=== PATIENT | male | born 1970 | race Caucasian/White ===

== ENCOUNTER 2021-12-06 17:11 | Emergency (ER) | payer SELFPAY | END 2021-12-06 17:25 | disposition left against medical advice (07) | PROVIDERS: Emergency Provider Emergency Medicine | DX: S61.04 Puncture wound with foreign body of thumb without damage to nail (principal); W45.8XXA Other foreign body or object entering through skin, initial encounter; Y93.14 Activity, water aerobics and water exercise; Y92.89 Other specified places as the place of occurrence of the external cause; Y99.9 Unspecified external cause status ==

== ENCOUNTER 2022-07-22 17:11 | Emergency (ER) | payer OTHER, SELFPAY ==
[2022-07-22 17:15] VITALS: BP 154/97; PULSE 90; O2SAT 96
--- NOTE | 2022-07-22 17:31 | ED_ITS ---
HPI - Nausea/Vomiting/Diarrhea General Chief complaint: Abdominal Pain Stated complaint: NVD Time Seen by Provider: 07/22/22 19:44 Source: patient Mode of arrival: ambulatory Limitations: no limitations History of Present Illness HPI Narrative: 52 yo male presents to the ER for evaluation of nausea, vomiting and diarrhea for the last 4 days. Patient took his friend's weight loss prescription Wegovy 1.7 mg SQ on Wednesday. He started to feel sick within a few hours of administering the shot. Patient states he has had countless amounts of vomiting and able to tolerate minimal p.o.. He feels weak and unwell. He has some soreness in his abdomen from retching and having recurrent vomiting. He denies any fevers or chills. He denies any urinary symptoms. No headaches. MD elicited complaint: nausea, vomiting and diarrhea Onset (ago): day(s) (4) Description of vomiting: watery and bilious Description of diarrhea: loose Associated nausea: Yes Associated abdominal pain: Yes Location of pain: diffuse Pain consistency: intermittent Severity: mild Quality: aching Exacerbating factors: eating Relieving factors: none Context: new medication Associated symptoms: myalgias, loss of appetite, malaise and weakness Related Data Previous Rx's Medication Instructions Recorded ondansetron 4 mg disintegrating 4 mg PO Q8H PRN nausea and 07/22/22 tablet vomiting #10 tabs Allergies Allergy/AdvReac Type Severity Reaction Status Date / Time No Known Allergies Allergy Verified 07/22/22 17:32 Review of Systems Review of Systems: Yes all other systems are reviewed and are negative Gastrointestinal: Gastrointestinal: Reports nausea PMFSH Social History Social History Advance Directives: No Advance Directives Information Provided: Yes Physical Exam Vital Signs: Vital Signs: Last Vital Signs Temp 98.1 F 07/22/22 20:49 Pulse 80 07/22/22 20:49 Resp 18 07/22/22 20:49 BP 166/86 H 07/22/22 20:49 Pulse Ox 96 07/22/22 20:49 O2 Del Method Room Air 07/22/22 20:49 BMI result Body Mass Index 29.4 Appearance: Alert. Oriented X3. No acute distress. Eyes: Pupils equal, round and reactive to light. ENT: Pharynx normal. Neck: Normal inspection. Neck supple. CVS: Normal heart rate and rhythm. Pulses normal. Respiratory: No respiratory distress. Breath sounds normal. Abdomen: Soft and nontender. +BS x4 Skin: Skin warm and dry. Normal skin color. Normal skin turgor. No rashes. Extremities: No lower extremity edema. Neuro: Oriented X 3. Grossly normal, nonfocal, steady gait Course Course Course Narrative: RME - 52 yo male with history of appendectomy, hx CVA, DM, HTN who presents to the ER for evaluation of N/V/D for the last 4 days after he tried his friend's Wegovy 1.7 mg SC on 07/19. He has not been able to keep anything down since he took. Feels extremely weak. Plan: Labs, IVF, antiemetics, PO trial, & reassess. Reevaluation(s) Reevaluation #1: Labs showing leukocytosis of 16.1. Likely reactive due to vomiting. He is hypokalemic. No hypo magnesemia or MARIO. IV fluids, antiemetics ordered. Will reassess Reevaluation #2: tolerating PO and feeling better. stable for d/[facility] and outpatient follow up. Medications Administered Discontinued Medications Generic Name Dose Route Start Last Admin Trade Name Freq PRN Reason Stop Dose Admin Famotidine 20 mg 07/22/22 20:39 07/22/22 20:42 Famotidine/Pf 20 Mg/2 Ml Vial IVPUSH 07/22/22 20:40 20 mg ONCE ONE Administration Sodium Chloride 1,000 mls @ 999 mls/hr 07/22/22 17:45 07/22/22 19:53 Ns IVCONT 07/22/22 18:45 999 mls/hr .Q1H1M DARCIE Administration Sodium Chloride 1,000 mls @ 999 mls/hr 07/22/22 19:45 07/22/22 20:09 Ns IVCONT 07/22/22 20:45 999 mls/hr .Q1H1M DARCIE Administration Ondansetron HCl 4 mg 07/22/22 17:32 07/22/22 19:55 Ondansetron Hcl 4 Mg/2 Ml Vial IVPUSH 07/22/22 17:33 4 mg ONCE ONE Administration Potassium Chloride 40 meq 07/22/22 19:44 07/22/22 19:56 Potassium Chloride Er 20 Meq Tab.Er.Prt PO 07/22/22 19:45 40 meq ONCE ONE Administration Medical Decision Making Medical Decision Making [facility] Narrative: 52-year-old male presents to the ER for evaluation of 4 days of nausea, vomiting, diarrhea after taking his friend's Wegovy 1.7 mg. Appears to feel unwell but he is nontoxic appearing. Half life of Wegovy is 1 week. Differential Diagnosis Differential Diagnoses: The differential diagnosis associated with the presentation includes Adverse medication reaction, dehydration, gastroenteritis, electrolyte abnormality, small-bowel obstruction, less likely appendicitis, diverticulitis, cholecystitis, pancreatitis Lab Data [facility] Lab Attestation statement: I reviewed the patient's lab results. 07/22/22 17:43 07/22/22 17:43 Labs: Lab Results 07/22/22 07/22/22 Range/Units 17:43 17:43 WBC 16.1 H (4.8-10.8) X10*3/uL RBC 6.26 H (4.60-5.80) X10*6/uL Hgb 17.1 (14.0-18.0) g/dl Hct 49.3 (42.0-52.0) % MCV 78.8 L (80.0-98.0) fL MCH 27.3 (27.0-33.0) pg MCHC 34.7 (31.0-36.0) g/dl RDW 14.8 (11.0-16.0) % Plt Count 392 (160-400) X10*3/uL MPV 9.9 (9.4-12.4) fL Immature Gran % (Auto) 0.5 H (0.0-0.4) % Neut % (Auto) 67.1 (45-73) % Lymph % (Auto) 19.1 L (20-40) % [place] % (Auto) 10.2 (2-11) % Eos % (Auto) 2.4 (0-4) % Baso % (Auto) 0.7 (0-2) % Lymph # (Auto) 3.1 (1.2-4.9) X10*3/uL [place] # (Auto) 1.6 H (0.1-1.2) X10*3/uL Eos # (Auto) 0.4 (0.0-0.4) X10*3/uL Baso # (Auto) 0.1 (0.0-0.2) X10*3/uL Abs Immat Gran (auto) 0.08 H (0.00-0.03) X10*3/uL Absolute Neuts (auto) 10.8 H (2.0-8.3) x10*3/uL Absolute Nucleated RBC 0.000 (0.0-0.012) X10*3/uL Nucleated RBC % (auto) 0.0 (0.0-0.2) /100WBC Smear Tech's Comments VERIFIED Sodium 140 (135-145) mmol/L Potassium 3.0 L (3.3-5.1) mmol/L Chloride 96 (96-108) mmol/L Carbon Dioxide 23 (22-29) mmol/L Anion Gap 24 H (12-20) BUN 30 H (9-16) mg/dL Creatinine 1.08 (0.5-1.4) mg/dL Estim Creat Clear Calc 90.6 Estimated GFR > 60 Random Glucose 138 H (60-115) mg/dL Calcium 10.1 (8.4-10.2) mg/dL Magnesium 2.1 (1.6-2.6) mg/dL Total Bilirubin 1.0 (0.0-1.0) mg/dL Direct Bilirubin 0.3 (0.0-0.5) mg/dL AST 20 (5-37) U/L ALT 19 (0-40) U/L Alkaline Phosphatase 166 H (39-117) U/L Total Protein 7.5 (6.5-8.0) g/dL Albumin 4.5 (3.5-5.0) g/dL Discharge Plan Discharge Clinical Impression: Adverse drug reaction Patient Disposition: Home, Self-Care Instructions: Adverse Drug Reaction (ED) Additional Instructions: Do not use your friend's drugs! The half life of Wegovy is 1 week. You should start to feel better as time goes on. Take the prescribed nausea medication as needed. Drink plenty of fluids and stay hydrated. Follow up with your doctor. If you develop new or worsening symptoms call 911 or come back to the ER for further evaluation. Prescriptions: New ondansetron 4 mg tablet,disintegrating 4 mg PO Q8H PRN (Reason: nausea and vomiting) Qty: 10 0RF
[2022-07-22 17:33] VITALS: BP 153/100; PULSE 97; RESP 18; TEMP 36.6; O2SAT 98; BMI 29.4
[2022-07-22 17:53] LABS: Basophils Absolute Auto 0.1 X10*3/uL (0.0-0.2); Basophils Percent Auto 0.7 % (0-2); Eosinophils Absolute Auto 0.4 X10*3/uL (0.0-0.4); Eosinophils Percent Auto 2.4 % (0-4); Hematocrit 49.3 % (42.0-52.0); Hemoglobin 17.1 g/dl (14.0-18.0); Imm Gran Abs Auto 0.08 X10*3/uL (0.00-0.03); Imm Gran Pct Auto 0.5 % (0.0-0.4); Lymphocytes Absolute Auto 3.1 X10*3/uL (1.2-4.9); Lymphocytes Percent Auto 19.1 % (20-40); MANUAL DIFF FLAG SCAN; Mean Corpuscular HGB Conc 34.7 g/dl (31.0-36.0); Mean Corpuscular Hemoglobin 27.3 pg (27.0-33.0); Mean Corpuscular Volume 78.8 fL (80.0-98.0); Mean Platelet Volume 9.9 fL (9.4-12.4); Monocytes Absolute Auto 1.6 X10*3/uL (0.1-1.2); Monocytes Percent Auto 10.2 % (2-11); Neutrophils Absolute Auto 10.8 x10*3/uL (2.0-8.3); Neutrophils Percent Auto 67.1 % (45-73); Platelet Count 392 X10*3/uL (160-400); Red Blood Count 6.26 X10*6/uL (4.60-5.80); Red Cell Distribution Width 14.8 % (11.0-16.0); SCAN SMEAR FLAG 1; White Blood Count 16.1 X10*3/uL (4.8-10.8)
[2022-07-22 18:12] LABS: SLIDE REVIEW VERIFIED
[2022-07-22 18:27] LABS: Alanine Aminotransferase 19 U/L (0-40); Albumin Level 4.5 g/dL (3.5-5.0); Alkaline Phosphatase 166 U/L (39-117); Anion Gap 24 (12-20); Aspartate Amino Transferase 20 U/L (5-37); Bilirubin Direct 0.3 mg/dL (0.0-0.5); Blood Urea Nitrogen 30 mg/dL (9-16); Calcium 10.1 mg/dL (8.4-10.2); Carbon Dioxide 23 mmol/L (22-29); Chloride 96 mmol/L (96-108); Creatinine Clr Calc Pharmacy 90.6; Estimated Glomerular Filt Rate > 60; Glucose Random 138 mg/dL (60-115); Magnesium 2.1 mg/dL (1.6-2.6); Sodium 140 mmol/L (135-145); Total Protein 7.5 g/dL (6.5-8.0)
[2022-07-22] MEDS: 0.9 % Sodium Chloride 1,000 ML 999 ML IVCONT ×2 (19:53→20:09)
[2022-07-22] MEDS: ondansetron HCL 4 MG/2 ML VIAL IVPUSH (19:55)
[2022-07-22] MEDS: Potassium Chloride ER 20 MEQ TAB.ER.PRT 40 MEQ PO (19:56)
--- NOTE | 2022-07-22 20:04 | PC.NURSE ---
pt medicated per JUN 20G iv in left AC NS 0.9% running- pt resting with sig other at bedside
[2022-07-22] MEDS: Famotidine/PF 20 MG/2 ML VIAL IVPUSH (20:42)
[2022-07-22 20:49] VITALS: BP 166/86; PULSE 80; RESP 18; TEMP 36.7; O2SAT 96
[2022-07-22] MEDS: Potassium Chloride ER 20 MEQ TAB.ER.PRT PO (21:25)
--- NOTE | 2022-07-22 21:31 | PC.NURSE ---
pt given PO trial with saltines, and gingerale, pt sts that feels much better oob sitting upright. S.O. at bedside- plan for discharge home
== END 2022-07-22 22:03 | disposition home or self-care (01) ==
PROVIDERS: Physician Assistant; Emergency Provider Emergency Medicine
DX: T50.995A Adverse effect of other drugs, medicaments and biological substances, initial encounter (principal); R11.10 Vomiting, unspecified; T50.905A Adverse effect of unspecified drugs, medicaments and biological substances, initial encounter; Y92.9 Unspecified place or not applicable; Z79.899 Other long term (current) drug therapy
CPT/HCPCS: 36415; 80048; 80076; 83735; 85025; 96361; 96374; 96375; 99284; J2405

== ENCOUNTER 2023-02-21 10:58 | Observation (INO) | payer OTHER, SELFPAY ==
--- NOTE | ~2023-02-21 | CT_ITS ---
EXAMINATION: CTA head and neck with contrast CLINICAL INFORMATION: Speech difficulty COMPARISON: None available. TECHNIQUE: Test bolus sequences followed by intravenous administration of 65 mL Omnipaque 350. Helical imaging was performed in the axial plane from the skull base to the thoracic inlet. Delayed postcontrast imaging of the head was also performed. The data was processed at the magnetic resonance technologist workstation for generation of MIP sequences. Angled MIPs and volume rendered reformatted images were also generated at an offline 3D workstation. Stenoses are assessed in accordance with NASCET criteria unless otherwise indicated. This CT examination was performed using dose optimization techniques as appropriate, variously including the following: *Automated exposure control *Adjustment of mA and/or kV according to patient size (this includes techniques or standardized protocols for targeted exams where dose is matched to indication/reason for exam; i.e. extremities or head) *Use of iterative reconstruction technique FINDINGS: CTA NECK: Three-vessel aortic arch. The innominate and bilateral subclavian arteries are patent. The origins and cervical segments of the common carotid arteries are patent bilaterally. The common carotid artery bifurcations demonstrate mural calcifications extending into the proximal segments of the cervical internal carotid arteries bilaterally without significant stenosis. The origins and cervical segments of the vertebral arteries are patent bilaterally. There is No hemodynamically significant stenosis, dissection, or aneurysm. The visualized branches of the external carotid arteries are unremarkable bilaterally. CTA HEAD: Anterior circulation: The petrous, cavernous, and supraclinoid segments of the internal carotid arteries are patent bilaterally. The major branches of the anterior and middle cerebral arteries as well as the anterior communicating artery complex are patent. No large vessel occlusion, saccular aneurysm, or dissection. Posterior circulation: The intracranial vertebral arteries are patent bilaterally. The basilar artery is normal in course and caliber. The posterior cerebral and superior cerebellar arteries arise normally from the basilar summit. Left posterior cerebral artery. No aneurysm. On delayed imaging, the venous structures demonstrate normal contrast opacification. No filling defect. No abnormal intraparenchymal enhancement. Soft tissues: Ill-defined and irregular mass at the posterior aspect of the tongue base may represent enlarged lingual tonsils. There is near complete opacification of the valleculae. Multiple prominent bilateral level II nodes are present, measuring up to 1.1 cm on the left and 0.9 cm on the right. Additional subcentimeter level III and level IV lymph nodes are present bilaterally. 1.1 x 1 cm hypoattenuating lesion involving the left thyroid lobe. Lungs: Multifocal groundglass opacities scattered in the visualized lungs. Bones: No acute osseous abnormality. No lytic or blastic osseous lesions. Mild degenerative changes of the visualized spine. CT/CT angio head neck stroke IMPRESSION: -CTA head demonstrates no large vessel occlusion, aneurysm, or dissection. -CTA neck demonstrates no hemodynamically significant stenosis, dissection, or aneurysm. Incidentally identified ill-defined and irregular mass at the posterior aspect of the tongue base is a near complete opacification of the bilaterally. May represent enlarged lingual tonsils versus oropharyngeal mass/neoplasm. Recommend direct visualization for further assessment. Multiple prominent cervical lymph nodes are present bilaterally may be reactive. Multifocal groundglass opacities scattered in the visualized lungs, nonspecific and can be seen with atelectasis, pulmonary edema, infection/inflammation, or small airway disease. 1.1 cm hypoattenuating lesion involving the left thyroid lobe. No follow-up recommended unless deemed clinically necessary.
--- NOTE | ~2023-02-21 | MR_ITS ---
EXAMINATION: MR BRAIN WITHOUT CONTRAST CLINICAL INFORMATION: Evaluate for stroke. Speech difficulty reported on the CT exam from 02/21/2023. COMPARISON: Head CT from 02/21/2023. TECHNIQUE: Multiplanar, multisequence imaging of the brain was performed without contrast. Very limited examination with motion artifacts. FINDINGS: There is encephalomalacia in the posterior right periventricular white matter extending into the posterior right basal ganglia where there is chronic hemosiderin staining. Mild ex vacuo dilatation of the right lateral ventricle also noted. There is a small chronic lacunar infarct in the dorsal left basal ganglia as well. No diffusion abnormalities are identified to suggest an acute infarct. No hydrocephalus evident. No mass effect or midline shift is seen. No additional brain parenchymal signal abnormality is noted. No extra-axial fluid collections are seen. The brainstem and cerebellum are normal. The craniovertebral junction, marrow signal, and midline structures are normal. The major intracranial flow voids at the level of the kaw of [place] are preserved. The dural venous sinus flow voids are maintained. Mild ethmoid sinus mucosal thickening noted. There is a trace amount of fluid in the dependent left mastoid air cells. MR/MR head/brain wo con IMPRESSION: Significantly limited study with motion artifacts. No acute process. Encephalomalacia and chronic hemosiderin staining in the posterior right periventricular white matter and dorsal right basal ganglia which may be due to either a prior parenchymal hemorrhage or hemorrhagic infarct. Small chronic lacunar infarct in the dorsal left basal ganglia as well.
--- NOTE | ~2023-02-21 | CT_ITS ---
EXAMINATION: CT HEAD WITHOUT CONTRAST (STROKE PROTOCOL) CLINICAL INFORMATION: Stroke protocol. Speech difficulty. COMPARISON: None available. TECHNIQUE: Contiguous axial imaging was performed from the skull base to vertex without intravenous administration of contrast. This CT examination was performed using dose optimization techniques as appropriate, variously including the following: *Automated exposure control *Adjustment of mA and/or kV according to patient size (this includes techniques or standardized protocols for targeted exams where dose is matched to indication/reason for exam; i.e. extremities or head) *Use of iterative reconstruction technique DLP: 767 mGy-cm FINDINGS: No acute intracranial hemorrhage. No mass effect or midline shift. No parenchymal lesion. The metz-white differentiation is maintained. No extra-axial fluid collection. The ventricles and sulci are unremarkable. The basal cisterns are patent. The calvarium is intact. The visualized paranasal sinuses and mastoid air cells are clear. CT/CT head for stroke IMPRESSION: No acute intracranial hemorrhage or mass effect. This critical result was discussed with Dr. Glass at 11:19 AM hours on 02/21/2023. It was ascertained that the content and urgency of the report was understood at the time of direct communication.
--- NOTE | 2023-02-21 11:04 | ECG_ITS ---
Test Reason : STROKE Blood Pressure : / mmHG Vent. Rate : 073 BPM Atrial Rate : 073 BPM P-R Int : 194 ms QRS Dur : 092 ms QT Int : 384 ms P-R-T Axes : 018 -06 019 degrees QTc Int : 423 ms Normal sinus rhythm Minimal voltage criteria for LVH, may be normal variant ( R in aVL ) Nonspecific ST abnormality Abnormal ECG No previous ECGs available Referred By: Hannah Glass Electronically Signed By:JAMARI HOPSON MD
--- NOTE | 2023-02-21 11:06 | ED_ITS ---
HPI - Neuro Symptoms/Deficit General Chief Complaint: Stroke Stated Complaint: ? of stroke Time Seen by Provider: 02/21/23 11:04 Source: patient and family Mode of arrival: wheelchair History of Present Illness HPI Narrative: 52-year-old male who reports a previous stroke and then today after having breakfast with his daughter he went to take a shower and experienced significant dizziness and states that he was swaying and have some difficulty with speech. These symptoms started at 09:15 and have not changed. Patient denies being on any aspirin/Plavix or other anticoagulation or anti-platelet therapy. Related Data Previous Rx's Medication Instructions Recorded ondansetron 4 mg disintegrating 4 mg PO Q8H PRN nausea and 07/22/22 tablet vomiting #10 tabs Allergies Allergy/AdvReac Type Severity Reaction Status Date / Time No Known Allergies Allergy Verified 07/22/22 17:32 Review of Systems 2 Review of Systems: Pertinent positives and negatives as stated in HPI PMFSH Past Medical History Source: nursing notes reviewed Social History Social History Smoked in Last 30 Days: Yes Use of substances other than those prescribed or required for medical reasons: No Advance Directives: No Advance Directives Information Provided: Yes Physical Exam 2 Vital Signs: Vital Signs: Last Vital Signs Temp 98.2 F 02/21/23 11:15 Pulse 76 02/21/23 11:15 Resp 15 02/21/23 11:15 BP 185/93 H 02/21/23 11:15 Pulse Ox 95 02/21/23 11:15 O2 Del Method Room Air 02/21/23 11:15 BMI result Body Mass Index 31.1 VITAL SIGNS: Reviewed. GENERAL: Well developed, well nourished, in no acute distress. HEAD: Normocephalic/atraumatic EYES: PERRLA, EOMI EARS: Ext canals without abnormality NOSE: Nares patent bilateral OROPHARYNX: no oral lesions noted, posterior pharynx clear NECK: Supple, no adenopathy LUNGS: Normal breath sounds. No adventitious sounds or accessory muscle use. SpO2<95> CARDIOVASCULAR: Regular rate and rhythm without noted murmurs ABDOMEN: Soft, non-tender, non-distended with bowel sounds. MUSCULOSKELETAL: No tenderness, deformities, or effusions noted on gross inspection. EXTREMITIES: No cyanosis, clubbing or edema. SKIN: Inspection of the skin reveals no rashes NEUROLOGIC: Alert and oriented x 4. Strength and sensation to light touch were grossly intact x 4, please see NIH stroke scale Medications Administered Generic Name Dose Route Start Last Admin Trade Name Freq PRN Reason Stop Dose Admin Sodium Chloride 1,000 mls @ 999 mls/hr 02/21/23 11:45 02/21/23 12:18 Ns IV 02/21/23 12:45 999 mls/hr .Q1H1M DARCIE Administration Discontinued Medications Generic Name Dose Route Start Last Admin Trade Name Freq PRN Reason Stop Dose Admin Aspirin 162 mg 02/21/23 11:59 02/21/23 12:17 Aspirin 81 Mg Tab.Chew PO 02/21/23 12:00 162 mg ONCE ONE Administration Iohexol 65 ml 02/21/23 11:30 02/21/23 11:31 Iohexol 350 Mg/Ml 100 Ml Infus..Btl IV 02/21/23 11:31 65 ml ONCE ONE Administration Medical Decision Making Medical Decision Making [facility] Narrative: 1104:52-year-old male with history and clinical presentation mildly suspicious for possible posterior circulation stroke although patient having speech difficulty which could suggest left sided etiology. 1118: [facility] informed me that noncontrast head CT scan is negative for any acute findings. Awaiting CT angio of head and neck at this time. 1140: Patient noted to be hyperglycemic. 1145: Page out to Neurology. 1155: Not considering tPA due to minor deficits and possible other etiologies. ASA, admission and MRI tomorrow. I reviewed all investigations and hematologic indices demonstrate a stress leukocytosis with a left shift and no evidence of anemia or thrombocytopenia. Coagulation studies are within normal limits. Chemistry indices are negative for MARIO and there are no electrolyte derangements, high sensitivity troponin is 3.2 and there is hyperglycemia without evidence of DKA or HHS, beta hydroxybutyrate is 0.11. Patient will receive 1 L of IV fluids and elevated blood pressure has resolved and no additional antihypertensives will be administered at this time. Urinalysis is negative for UTI or hematuria. CT angio of head and neck is not significant for any acute findings in the circulation system, however there is some concern for possible tongue base mass which will need further evaluation likely in the outpatient setting. There are no associated swallowing or breathing difficulties. EKG without evidence of STEMI. 1230: I discussed the case with inpatient hospitalist who accepts admission. Differential Diagnosis Differential Diagnoses: The differential diagnosis associated with the presentation includes Please see the discussion above Admission/Observation Consideration of admission/observation: Escalation of care including admission/observation considered Please see the discussion above Consult Healthcare Provider Management of the patient was discussed with: Emergency Department Manager Please see the discussion above Lab Data MDM Lab Attestation statement: I reviewed the patient's lab results. Please see the discussion above 02/21/23 11:06 02/21/23 11:06 Labs: Lab Results 02/21/23 02/21/23 02/21/23 Range/Units 11:06 11:09 11:12 WBC 10.9 H (4.8-10.8) X10*3/uL RBC 5.69 (4.60-5.80) X10*6/uL Hgb 15.8 (14.0-18.0) g/dl Hct 46.9 (42.0-52.0) % MCV 82.4 (80.0-98.0) fL MCH 27.8 (27.0-33.0) pg MCHC 33.7 (31.0-36.0) g/dl RDW 14.2 (11.0-16.0) % Plt Count 269 D (160-400) X10*3/uL MPV 9.7 (9.4-12.4) fL Immature Gran % (Auto) 0.5 H (0.0-0.4) % Neut % (Auto) 65.5 (45-73) % Lymph % (Auto) 24.7 (20-40) % [place] % (Auto) 6.5 (2-11) % Eos % (Auto) 2.3 (0-4) % Baso % (Auto) 0.5 (0-2) % Lymph # (Auto) 2.7 (1.2-4.9) X10*3/uL [place] # (Auto) 0.7 (0.1-1.2) X10*3/uL Eos # (Auto) 0.3 (0.0-0.4) X10*3/uL Baso # (Auto) 0.1 (0.0-0.2) X10*3/uL Abs Immat Gran (auto) 0.05 H (0.00-0.03) X10*3/uL Absolute Neuts (auto) 7.2 (2.0-8.3) x10*3/uL Absolute Nucleated RBC 0.000 (0.0-0.012) X10*3/uL Nucleated RBC % (auto) 0.0 (0.0-0.2) /100WBC PT 11.3 (11.1-13.3) SEC Whole Blood PT 12.0 (11.1-13.5) sec INR 0.9 (0.9-1.1) Whole Blood INR 1.0 (0.9-1.1) APTT 32.0 (26.0-36.4) SEC Sodium 138 (135-145) mmol/L Potassium 3.3 (3.3-5.1) mmol/L Chloride 100 (96-108) mmol/L Carbon Dioxide 25 (22-29) mmol/L Anion Gap 16 (12-20) BUN 12 (9-16) mg/dL Creatinine 1.00 (0.5-1.4) mg/dL Estim Creat Clear Calc 100.3 Estimated GFR > 60 POC Glucose 394 H* (60-115) mg/dL Random Glucose 429 H* (60-115) mg/dL Calcium 9.7 (8.4-10.2) mg/dL Total Creatine Kinase 52 (38-174) U/L Troponin I High Sens 3.2 (<3.5-35.0) ng/L Beta-Hydroxybutyrate 0.11 (0.02-0.27) mmol/L Urine Color Urine Appearance Urine pH (5.0-9.0) Ur Specific [place] (1.005-1.025) Urine Protein (Neg-Trace) mg/dL Urine Glucose (UA) (Negative) mg/dL Urine Ketones (Negative) mg/dL Urine Blood (Negative) Urine Nitrite (Negative) Ur Leukocyte Esterase (Negative) Urine RBC (0-2) /HPF Urine WBC (0-5) /HPF Ur Squamous Epith Cells (0-2) /HPF Urine Bacteria (None Seen) Hyaline Casts (0-2) /LPF 02/21/23 Range/Units 12:04 WBC (4.8-10.8) X10*3/uL RBC (4.60-5.80) X10*6/uL Hgb (14.0-18.0) g/dl Hct (42.0-52.0) % MCV (80.0-98.0) fL MCH (27.0-33.0) pg MCHC (31.0-36.0) g/dl RDW (11.0-16.0) % Plt Count (160-400) X10*3/uL MPV (9.4-12.4) fL Immature Gran % (Auto) (0.0-0.4) % Neut % (Auto) (45-73) % Lymph % (Auto) (20-40) % [place] % (Auto) (2-11) % Eos % (Auto) (0-4) % Baso % (Auto) (0-2) % Lymph # (Auto) (1.2-4.9) X10*3/uL [place] # (Auto) (0.1-1.2) X10*3/uL Eos # (Auto) (0.0-0.4) X10*3/uL Baso # (Auto) (0.0-0.2) X10*3/uL Abs Immat Gran (auto) (0.00-0.03) X10*3/uL Absolute Neuts (auto) (2.0-8.3) x10*3/uL Absolute Nucleated RBC (0.0-0.012) X10*3/uL Nucleated RBC % (auto) (0.0-0.2) /100WBC PT (11.1-13.3) SEC Whole Blood PT (11.1-13.5) sec INR (0.9-1.1) Whole Blood INR (0.9-1.1) APTT (26.0-36.4) SEC Sodium (135-145) mmol/L Potassium (3.3-5.1) mmol/L Chloride (96-108) mmol/L Carbon Dioxide (22-29) mmol/L Anion Gap (12-20) BUN (9-16) mg/dL Creatinine (0.5-1.4) mg/dL Estim Creat Clear Calc Estimated GFR POC Glucose (60-115) mg/dL Random Glucose (60-115) mg/dL Calcium (8.4-10.2) mg/dL Total Creatine Kinase (38-174) U/L Troponin I High Sens (<3.5-35.0) ng/L Beta-Hydroxybutyrate (0.02-0.27) mmol/L Urine Color Yellow Urine Appearance Clear Urine pH 8.0 (5.0-9.0) Ur Specific Baker >= 1.030 H (1.005-1.025) Urine Protein Negative (Neg-Trace) mg/dL Urine Glucose (UA) >=1000 H (Negative) mg/dL Urine Ketones Negative (Negative) mg/dL Urine Blood Negative (Negative) Urine Nitrite Negative (Negative) Ur Leukocyte Esterase Negative (Negative) Urine RBC 0-2 (0-2) /HPF Urine WBC 0-5 (0-5) /HPF Ur Squamous Epith Cells 0-2 (0-2) /HPF Urine Bacteria None Seen (None Seen) Hyaline Casts 0-2 (0-2) /LPF Independent Interpretation I performed an independent interpretation of an: EKG Interpretation: Normal sinus rhythm, HR-73, no STEMI, IN/QRS/QTC is within normal limits. Radiology Impression Discussion of test interpretation with radiology: I have reviewed the radiologist's reading. Radiologist Impression: Please see the discussion above External Record Review External record reviewed: Outpatient record and Prior outpatient labs Chronic Conditions Patient?s care impacted by: Diabetes and Hypertension NIH Stroke Scale Internal: Initial- Upon Arrival Level of Consciousness: Alert Level of Consciousness Questions: Answers both questions correctly Level of Consciousness Commands: Performs both tasks correctly Best Gaze: Normal Visual: No visual loss Facial Palsy: Normal Motor Arm (Right): No drift Motor Arm (Left): No drift Motor Leg (Right): No drift Motor Leg (Left): No drift Limb Ataxia: Present in two limbs Sensory: Normal Best Language: No aphasia Dysarthia: Mild to moderate dysarthria Extinction and Inattention: No abnormality Score: 3 Critical Care Time Critical Care Time Critical Care Time: Yes Total Critical Care Time: 60 Attestation: I personally attest to this time spent taking care of the patient. Discharge Plan Discharge Clinical Impression: Alteration in speech, Gait instability Patient Disposition: Admitted As Inpatient Prescriptions: No Action ondansetron 4 mg tablet,disintegrating 4 mg PO Q8H PRN (Reason: nausea and vomiting) Qty: 10 0RF
[2023-02-21 11:15] VITALS: BP 185/93; PULSE 76; RESP 15; TEMP 36.8; O2SAT 95; BMI 31.1
[2023-02-21 11:16] LABS: MANUAL DIFF FLAG NO
[2023-02-21 11:17] LABS: Glucose, Whole Blood 394 mg/dL (60-115)
[2023-02-21 11:18] LABS: Basophils Absolute Auto 0.1 X10*3/uL (0.0-0.2); Basophils Percent Auto 0.5 % (0-2); Eosinophils Absolute Auto 0.3 X10*3/uL (0.0-0.4); Eosinophils Percent Auto 2.3 % (0-4); Hematocrit 46.9 % (42.0-52.0); Hemoglobin 15.8 g/dl (14.0-18.0); Imm Gran Abs Auto 0.05 X10*3/uL (0.00-0.03); Imm Gran Pct Auto 0.5 % (0.0-0.4); Lymphocytes Absolute Auto 2.7 X10*3/uL (1.2-4.9); Lymphocytes Percent Auto 24.7 % (20-40); Mean Corpuscular HGB Conc 33.7 g/dl (31.0-36.0); Mean Corpuscular Hemoglobin 27.8 pg (27.0-33.0); Mean Corpuscular Volume 82.4 fL (80.0-98.0); Mean Platelet Volume 9.7 fL (9.4-12.4); Monocytes Absolute Auto 0.7 X10*3/uL (0.1-1.2); Monocytes Percent Auto 6.5 % (2-11); Neutrophils Absolute Auto 7.2 x10*3/uL (2.0-8.3); Neutrophils Percent Auto 65.5 % (45-73); Platelet Count 269 X10*3/uL (160-400); Red Blood Count 5.69 X10*6/uL (4.60-5.80); Red Cell Distribution Width 14.2 % (11.0-16.0); White Blood Count 10.9 X10*3/uL (4.8-10.8)
[2023-02-21 11:23] LABS: INTERNATIONAL NORM RATIO 0.9 (0.9-1.1); Prothrombin Time 11.3 SEC (11.1-13.3)
[2023-02-21 11:27] LABS: Stroke Lab Use COMPLETE
[2023-02-21] MEDS: iohexoL 350 MG/ML 100 ML INFUS..BTL 65 ML IV (11:31)
[2023-02-21 11:39] LABS: Troponin-I High Sensitivity 3.2 ng/L (<3.5-35.0)
[2023-02-21 11:41] LABS: Anion Gap 16 (12-20); Blood Urea Nitrogen 12 mg/dL (9-16); Calcium 9.7 mg/dL (8.4-10.2); Carbon Dioxide 25 mmol/L (22-29); Chloride 100 mmol/L (96-108); Creatinine Clr Calc Pharmacy 100.3; Estimated Glomerular Filt Rate > 60; Glucose Random 429 mg/dL (60-115); Potassium 3.3 mmol/L (3.3-5.1); Sodium 138 mmol/L (135-145)
[2023-02-21 12:10] LABS: Beta-Hydroxybutyrate 0.11 mmol/L (0.02-0.27)
[2023-02-21 12:11] LABS: Appearance Urine Clear; Color Urine Yellow; Glucose Urine UA >=1000 mg/dL (Negative); Leukocyte Esterase Urine Negative (Negative); Nitrite Urine Negative (Negative); Specific Gravity - Urine >= 1.030 (1.005-1.025); UMIC TRIGGER UACC YES; Urine Blood Negative (Negative); Urine Ketones Negative (Negative); Urine Protein Negative (Neg-Trace)
[2023-02-21 12:16] LABS: Bacteria Urine None Seen (None Seen); Hyaline Casts Urine 0-2 /LPF (0-2); RBC Urine 0-2 /HPF (0-2); Squamous Epithelial Cell Urine 0-2 /HPF (0-2); WBC Urine 0-5 /HPF (0-5)
[2023-02-21] MEDS: Aspirin 81 MG TAB.CHEW 162 MG PO (12:17)
[2023-02-21] MEDS: 0.9 % Sodium Chloride 1,000 ML 999 ML IV (12:18)
[2023-02-21 12:38] VITALS: BP 153/89; PULSE 80
[2023-02-21 12:49] LABS: Estimated Average Glucose 278 mg/dL; Hemoglobin A1c % 11.3 % (<6.0)
--- NOTE | 2023-02-21 13:19 | PHA.MEDREC ---
Pharmacy Consult ? Medication Reconciliation Pharmacy has completed the medication reconciliation. spoke with patient to confirm [facility].
--- NOTE | 2023-02-21 13:25 | PM.IMHP ---
History of Present Illness Date of Service: 02/21/23 Attending physician on admission: [facility] Chief Complaint: slurred speech, impaired balance 52 year old male with history of poorly controlled type 2 diabetes, htn, hld, migraines headaches, hx cva, and diabetic polyneuropathy presented to the ED earlier today with stroke like symptoms. Reports he had breakfast and around 915am developed slurred speech and impaired balance but did not fall. No visual changes, extremity weakenss or paresthesias, facial droop, nearsyncope, syncope. On arrival, pt hypertensive to 185/93, vitals otherwise stable. Hematology studies unremarkable. Renal function and lytes normal. Random glucode 426, improved to 395 with IVF. Hbg A1c 11.3%, beta- hydroxybutyrate 0.11. Trop 3.2. UA unremarkable except for significant glucose. Pt reports he is compliant with metforming, does not check his sugar, and has not seen his pcp in nearly a year. Head CT negative for any acute intracranial abnormality. CT neck negative for any large vessel acute loosen, aneurysm or dissection. Does reveal an incidentally found ill-defined and irregular mass at the posterior aspect of the tongue base with near complete opacification bilaterally possibly representing enlarged lingual tonsils verses oropharyngeal mass/neoplasm. In the ED, pt passed nursing bedside swallow evaluation. Given 162mg asa. Not a tpa candidate as symptoms are resolving. Review of Systems Review of Systems: General: No fevers, malaise, unintentional weight loss HEENT: No blurred vision, diplopia. No sore throat, nasal congestion, rhinorrhea, sinus pain, ear pain Cardiovascular: No chest pain, palpitations, or leg edema Respiratory: No shortness of breath, wheezing, cough GI: No abdominal pain, nausea, vomiting, diarrhea, constipation, melena, hematochezia : No dysuria, hematuria, increased urinary frequency, decreased urinary output MSK: No myalgia, back pain Neuro: No headaches, weakness, paresthesias. +slurred speech, +impaired balance Skin: No rashes or lesions [facility] Medical History Diabetic polyneuropathy Diabetes History of stroke Hyperlipidemia Hypertension Social History Smoked in Last 30 Days: Yes Use of substances other than those prescribed or required for medical reasons: No Advance Directives: No Advance Directives Information Provided: Yes Meds Allergies Allergy/AdvReac Type Severity Reaction Status Date / Time No Known Allergies Allergy Verified 07/22/22 17:32 Active Medications: Current Medications Acetaminophen (Acetaminophen 325 Mg Tablet) 650 mg PO Q6H PRN PRN Reason: Pain, Mild (Pain Scale 1-3) Aspirin (Aspirin Enteric Coated 81 Mg Tablet.Dr) 81 mg PO DAILY [facility] Atorvastatin Calcium (Atorvastatin Calcium 80 Mg Tablet) 80 mg PO DAILY [facility] Dextrose (Dextrose 50 % 25 Gm/50 Ml Syringe) 25 gm IVPUSH Q15M PRN; Protocol PRN Reason: per Hypoglycemia Standing Ord. Docusate Sodium (Docusate Sodium 100 Mg Capsule) 100 mg PO DAILY PRN PRN Reason: Constipation Enoxaparin Sodium (Enoxaparin Sodium 40 Mg/0.4 Ml Syringe) 40 mg SUBCUT Q24H [facility] Glucose (Glucose Gel 15 Gm Gel..Gram.) 15 gm PO Q15M PRN; Protocol PRN Reason: per Hypoglycemia Standing Ord. Insulin Human Lispro (Insulin Lispro 100 Unit/Ml 3 Ml Vial) 0 unit SUBCUT QIDACHS [facility]; Protocol Ondansetron HCl (Ondansetron Hcl 4 Mg/2 Ml Vial) 4 mg IVPUSH Q8H PRN PRN Reason: Nausea and Vomiting Sodium Chloride (0.9 % Sodium Chloride Flush 3 Ml Syringe) 3 ml IVFLUSH QSHIFT [facility] Home Medications Medication Instructions Recorded Confirmed Last Taken Type amlodipine 10 mg tablet 10 mg PO DAILY 02/21/23 02/21/23 02/21/23 History atorvastatin 80 mg tablet 80 mg PO DAILY 02/21/23 02/21/23 02/21/23 History baclofen 10 mg tablet 10 mg PO BID-TID 02/21/23 02/21/23 Unknown History carbamazepine 200 mg tablet 400 mg PO BID 02/21/23 02/21/23 02/21/23 History ezetimibe 10 mg tablet 10 mg PO DAILY 02/21/23 02/21/23 Unknown History lisinopril 40 mg tablet 40 mg PO DAILY 02/21/23 02/21/23 02/21/23 History meloxicam 15 mg tablet 15 mg PO DAILY PRN Pain 02/21/23 02/21/23 Unknown History pregabalin 200 mg capsule 200 mg PO TID 02/21/23 02/21/23 02/21/23 History ubrogepant 50 mg tablet (Ubrelvy) 50 mg PO NEEDED PRN Migraine 02/21/23 02/21/23 Unknown History Headache Physical Exam Vital Signs and Narrative: Vital Signs: Last Vital Signs Temp 98.2 F 02/21/23 11:15 Pulse 80 02/21/23 12:38 Resp 15 02/21/23 11:15 BP 153/89 H 02/21/23 12:38 Pulse Ox 95 02/21/23 11:15 O2 Del Method Room Air 02/21/23 11:15 BMI result Body Mass Index 31.1 Constitutional - Awake and Alert, No apparent distress Eyes - PERRLA, EOMI Mouht/Throat- no erythema, exudate. NO observed masses in the posterior oropharynx using glidescope Cardiovascular - S1S2, RRR, No edema Respiratory - Normal lung expansion, Normal respiratory effort, No respiratory distress, CTA bilaterally Gastrointestinal - NT / ND; +BS; No rebound or guarding Extremities - no calf tenderness bilaterally, no swelling Skin - Warm/Dry Neurological - Alert & oriented x3, CN II-XII in tact, 5/5 strength BUE and BLE, neg pronator drift, no cerebellar ataxia Psychological - Appropriate affect Results Labs 02/21/23 11:06 02/21/23 11:06 Labs: Laboratory Results - last 24 hr 02/21/23 02/21/23 02/21/23 11:06 11:09 11:12 MCV 82.4 MCH 27.8 MCHC 33.7 RDW 14.2 Plt Count 269 D MPV 9.7 Immature Gran % (Auto) 0.5 H Neut % (Auto) 65.5 Lymph % (Auto) 24.7 [place] % (Auto) 6.5 Eos % (Auto) 2.3 Baso % (Auto) 0.5 Lymph # (Auto) 2.7 [place] # (Auto) 0.7 Eos # (Auto) 0.3 Baso # (Auto) 0.1 Abs Immat Gran (auto) 0.05 H Absolute Neuts (auto) 7.2 Absolute Nucleated RBC 0.000 Nucleated RBC % (auto) 0.0 PT 11.3 Whole Blood PT 12.0 INR 0.9 Whole Blood INR 1.0 APTT 32.0 Anion Gap 16 Estim Creat Clear Calc 100.3 Estimated GFR > 60 POC Glucose 394 H* Random Glucose 429 H* Estimat Average Glucose 278 Hemoglobin A1c % 11.3 H Calcium 9.7 Total Creatine Kinase 52 Beta-Hydroxybutyrate 0.11 Urine Color Urine Appearance Urine pH Ur Specific [place] Urine Protein Urine Glucose (UA) Urine Ketones Urine Blood Urine Nitrite Ur Leukocyte Esterase Urine RBC Urine WBC Ur Squamous Epith Cells Urine Bacteria Hyaline Casts 02/21/23 12:04 MCV MCH MCHC RDW Plt Count MPV Immature Gran % (Auto) Neut % (Auto) Lymph % (Auto) [place] % (Auto) Eos % (Auto) Baso % (Auto) Lymph # (Auto) [place] # (Auto) Eos # (Auto) Baso # (Auto) Abs Immat Gran (auto) Absolute Neuts (auto) Absolute Nucleated RBC Nucleated RBC % (auto) PT Whole Blood PT INR Whole Blood INR APTT Anion Gap Estim Creat Clear Calc Estimated GFR POC Glucose Random Glucose Estimat Average Glucose Hemoglobin A1c % Calcium Total Creatine Kinase Beta-Hydroxybutyrate Urine Color Yellow Urine Appearance Clear Urine pH 8.0 Ur Specific [place] >= 1.030 H Urine Protein Negative Urine Glucose (UA) >=1000 H Urine Ketones Negative Urine Blood Negative Urine Nitrite Negative Ur Leukocyte Esterase Negative Urine RBC 0-2 Urine WBC 0-5 Ur Squamous Epith Cells 0-2 Urine Bacteria None Seen Hyaline Casts 0-2 Imaging Radiologist's Impressions: Impressions Head CT 02/21/23 11:12 IMPRESSION: No acute intracranial hemorrhage or mass effect. This critical result was discussed with Dr. Glass at 11:19 AM hours on 02/21/2023. It was ascertained that the content and urgency of the report was understood at the time of direct communication. Head/Neck CTA 02/21/23 11:32 IMPRESSION: -CTA head demonstrates no large vessel occlusion, aneurysm, or dissection. -CTA neck demonstrates no hemodynamically significant stenosis, dissection, or aneurysm. Incidentally identified ill-defined and irregular mass at the posterior aspect of the tongue base is a near complete opacification of the bilaterally. May represent enlarged lingual tonsils versus oropharyngeal mass/neoplasm. Recommend direct visualization for further assessment. Multiple prominent cervical lymph nodes are present bilaterally may be reactive. Multifocal groundglass opacities scattered in the visualized lungs, nonspecific and can be seen with atelectasis, pulmonary edema, infection/inflammation, or small airway disease. 1.1 cm hypoattenuating lesion involving the left thyroid lobe. No follow-up recommended unless deemed clinically necessary. Assessment and Plan (1) Gait instability: Status: Acute (2) Alteration in speech: Status: Acute Plan 52 year old male with history of poorly controlled type 2 diabetes, htn, hld, migraines headaches, hx cva, and diabetic polyneuropathy to be observed for acute neuro deficits. #Slurred speech and gait imbalance -fully resolved on admission -?CVA vs 2/2 hyperglycemia -CT head negative for acute intracranial abnormality, CTA head/neck negative for any hemodynamically significant stenoses, dissections, aneurysm -MRI brain pending -given 162 mg aspirin, continue 81 mg ASA daily -lipid profile pending, atorvastatin 80 mg daily -neurochecks -past nursing bedside swallow evaluation -echo ordered -neurology consult -monitor on telemetry # uncontrolled [id number] type 2 diabetes -Humalog on sliding scale -and Lantus 10 units nightly -POC glucose -diabetic diet -hemoglobin A1c 11.3% #Possible oropharngeal mass- on ct -no masses observed on exam using glidescope -MRI pending -ENT follow up # hypertension -resume antihypertensives a.m. # hyperlipidemia -lipid panel pending -atorvastatin 80 mg daily # diabetic polyneuropathy -continue Lyrica DVT prophylaxis-Lovenox Full code Time Spent With Patient Time: Total time managing care of this patient today ____ minutes. Quality Stroke Does the patient have a stroke diagnosis?: Yes Reason for No Anti-thrombotic by Day Two: Drug treatment not indicated VTE Prior VTE?: No VTE Risk Level:: Medical - moderate - high VTE Device Contraindication: Treatment Not Indicated VTE Drug Contraindication: N/A - Med Ordered
[2023-02-21 14:34] VITALS: BP 169/94; PULSE 71; RESP 19; O2SAT 96
[2023-02-21] MEDS: Enoxaparin Sodium 40 MG/0.4 ML SYRINGE SUBCUT (14:38)
[2023-02-21] MEDS: Pregabalin 200 MG CAPSULE PO ×2 (14:39→21:41)
[2023-02-21] MEDS: Baclofen 10 MG TABLET PO ×2 (14:39→21:41)
[2023-02-21] MEDS: Acetaminophen 325 MG TABLET 650 MG PO (14:46)
[2023-02-21 15:16] VITALS: BP 177/86; PULSE 67; RESP 16; TEMP 36.4; O2SAT 94
[2023-02-21 15:21] VITALS: BMI 30.8
[2023-02-21] MEDS: 0.9 % Sodium Chloride Flush 3 ML SYRINGE IVFLUSH ×2 (15:30→21:43)
[2023-02-21 15:58] LABS: Glucose, Whole Blood 260 mg/dL (60-115)
[2023-02-21] MEDS: Insulin Lispro 100 UNIT/ML 3 ML VIAL SUBCUT ×2 (16:00→21:49)
[2023-02-21 20:00] VITALS: BP 178/79; PULSE 67; RESP 18; TEMP 36.1; O2SAT 95
[2023-02-21 21:38] LABS: Glucose, Whole Blood 300 mg/dL (60-115)
[2023-02-21] MEDS: Insulin Glargine,Hum.rec.anlog 100 UNIT/ML 10 ML VIAL 10 UNIT SUBCUT (21:41)
[2023-02-21] MEDS: carBAMazepine 200 MG TABLET 400 MG PO (21:41)
[2023-02-22] VITALS: BP 159/81; PULSE 63; RESP 18; TEMP 37.2; O2SAT 92
[2023-02-22 04:00] VITALS: BP 159/89; PULSE 98; RESP 18; TEMP 37.1; O2SAT 98
[2023-02-22 06:31] LABS: MANUAL DIFF FLAG NO
[2023-02-22 06:33] LABS: Basophils Absolute Auto 0.1 X10*3/uL (0.0-0.2); Basophils Percent Auto 0.8 % (0-2); Eosinophils Absolute Auto 0.4 X10*3/uL (0.0-0.4); Eosinophils Percent Auto 3.4 % (0-4); Hematocrit 42.9 % (42.0-52.0); Hemoglobin 14.8 g/dl (14.0-18.0); Imm Gran Abs Auto 0.05 X10*3/uL (0.00-0.03); Imm Gran Pct Auto 0.4 % (0.0-0.4); Lymphocytes Absolute Auto 3.3 X10*3/uL (1.2-4.9); Lymphocytes Percent Auto 29.3 % (20-40); Mean Corpuscular HGB Conc 34.5 g/dl (31.0-36.0); Mean Corpuscular Volume 81.3 fL (80.0-98.0); Mean Platelet Volume 9.7 fL (9.4-12.4); Monocytes Absolute Auto 0.9 X10*3/uL (0.1-1.2); Monocytes Percent Auto 8.1 % (2-11); Neutrophils Absolute Auto 6.5 x10*3/uL (2.0-8.3); Platelet Count 251 X10*3/uL (160-400); Red Blood Count 5.28 X10*6/uL (4.60-5.80); White Blood Count 11.2 X10*3/uL (4.8-10.8)
[2023-02-22 06:53] LABS: Anion Gap 16 (12-20); Blood Urea Nitrogen 10 mg/dL (9-16); Calcium 8.8 mg/dL (8.4-10.2); Carbon Dioxide 24 mmol/L (22-29); Chloride 104 mmol/L (96-108); Cholesterol 125 mg/dL (<200); Creatinine Clr Calc Pharmacy 142.8; Estimated Glomerular Filt Rate > 60; Glucose Random 168 mg/dL (60-115); HDL Cholesterol 30 mg/dL (>40); LDL Cholesterol Calculated 65 mg/dL (<100); Potassium 3.1 mmol/L (3.3-5.1); Sodium 141 mmol/L (135-145); Triglycerides 152 mg/dL (<150)
--- NOTE | 2023-02-22 07:00 | CA_ITS ---
Transthoracic Echocardiogram Patient (Last, First, Middle): Kal Barnhart, Gender: Male Date of : 1970 Age: 52 Procedure Date: 02/22/2023 Procedure Type: Transthoracic Echocardiogram Location: [facility] [place] Height: 180.34 cm Weight: 97.07 kg BSA: 2.17 m2 Heart Rate: bpm BP: 159 / 89 mmHg [employer] Loader And Unloader: Referring MD: Hyun CARTER Symptoms: cva, bubble needed Study Quality: Good ECG Rhythm: Sinus Conclusions: - Normal left ventricular size and systolic function. There is mildly increased left ventricular wall thickness. The visually estimated ejection fraction is between 55-60%. - E/E prime ratio is between 8 and 15 consistent with indeterminate filling pressures. - The left atrium is mildly dilated. - There is no evidence of interatrial shunt by agitated saline. Findings Left Ventricle Normal left ventricular size and systolic function. There is mildly increased left ventricular wall thickness. The visually estimated ejection fraction is between 55-60%. There is no evidence of regional wall motion abnormalities. Abnormal diastolic function is noted. Spectral Doppler is indicative of an impaired relaxation filling pattern. E/E prime ratio is between 8 and 15 consistent with indeterminate filling pressures. Right Ventricle Normal right ventricular cavity size and systolic function. Atria The left atrium is mildly dilated. There is no evidence of interatrial shunt by agitated saline. Aortic Valve Normal aortic valve structure and function. There is no aortic valve stenosis. There is trace (trivial) aortic valve regurgitation. Mitral Valve The mitral valve appears normal. There is trace mitral valve regurgitation. There is no mitral valve stenosis. Pulmonic Valve Normal pulmonic valve structure and function. Tricuspid Valve Normal tricuspid valve structure and function. There is no tricuspid valve regurgitation. Indeterminate right atrial pressure. PASP = 26 + right atrial pressure. Great Vessels All visible segments of the aorta are normal in size. The pulmonary artery was not well visualized. Venous The inferior vena cava was not well visualized. Pericardium/Pleural There is no evidence of pericardial effusion. Prior Study Comparison No prior study available for comparison. Measurements 2D Linear Measurements IVSd: 1.22 0.6-0.9/0.6-1.0 cm LVIDd: 3.92 3.9-5.3/4.2-5.9 cm LVIDd Index: 1.81 2.4-3.2/2.2-3.1 cm/m2 LVIDs: 2.76 2.0-3.6 cm LVPWd: 1.26 0.7-1.1 cm Ao Root: 3.60 2.1-3.5 cm LA Diam: 4.10 2.7-3.8/3.0-4.0 cm LAIDs Index: 1.89 1.5-2.3 cm/m2 LV Mass: 209.98 67-162/88-224 g LV Mass Index: 96.77 43-95/49-115 g/m2 LVOT Diam: 2.60 3.0+(-)1.3 cm Mitral Valve MV Pk E: 0.74 MV PK A: 0.90 MV Decel Time: 183.00 E/A: 0.80 E'Lateral: 5.77 E'Medial: 5.11 E/E' Med: 14.50 E/E' Lat: 12.80 PHT: 54.00 MVA PHT: 4.07 Decel [place]: 4.05 Aortic Valve AoV Pk Marquise: 1.13 AoV Mn Marquise: 0.73 AoV VTI: 0.27 AoV Pk Grad: 5.00 Aov Mn Grad: 3.00 ANAHI Cont.VTI: 4.94 LVOT LVOT Pk Marquise: 1.06 LVOT Mn Marquise: 0.71 LVOT VTI: 0.25 LVOT Pk Grad: 4.00 LVOT Mn Grad: 2.00 LVOT Diam: 2.60 LVOT Area: 5.31 Diastolic Function MV Pk E: 0.74 MV Pk A: 0.90 E/A: 0.80 E'Medial: 5.11 E/E' Med: 14.50 E' Laterial: 5.77 E/E' Lat: 12.80 Right Ventricle TAPSE (mm): 17.00 TVS' Marquise: 10.00 Tricuspid Valve TR Pk Marquise: 2.42 TR Pk Grad: 23.00 RA Press: 3.00 RVSP: 26.00 Great Vessels Aorta Ao Root-2D: 3.60 2.0-3.7 cm Ao Asc: 3.30 2.1-3.4 cm Pulmonary Valve PV Pk Marquise: 1.03 Peak PV Grad: 4.00 Updated in Other Vendor System with Status of Final Adan Smiley MD electronically signed on 02/22/2023 1:15:42 PM with status of Final
[2023-02-22 07:47] LABS: Glucose, Whole Blood 173 mg/dL (60-115)
[2023-02-22 08:00] VITALS: BP 169/89; PULSE 62; RESP 16; TEMP 36.5; O2SAT 95
--- NOTE | 2023-02-22 08:17 | PM.DS ---
DS: Providers Provider Date of Service: 02/22/23 Date of admission: 02/21/23 12:53 Primary care physician: Unknown Physician Consults: 02/21/23 12:55 Consult to Neurology Routine Consulting Provider: Jorge Nichole Reason for consultation: ?cva DS: Diagnosis Discharge Diagnosis (1) Gait instability: Status: Acute (2) Alteration in speech: Status: Acute DS: Summary Hospital Course Hospital Course: Admission HPI Chief Complaint: slurred speech, impaired balance 52 year old male with history of poorly controlled type 2 diabetes, htn, hld, migraines headaches, hx cva, and diabetic polyneuropathy presented to the ED earlier today with stroke like symptoms. Reports he had breakfast and around 915am developed slurred speech and impaired balance but did not fall. No visual changes, extremity weakenss or paresthesias, facial droop, nearsyncope, syncope. On arrival, pt hypertensive to 185/93, vitals otherwise stable. Hematology studies unremarkable. Renal function and lytes normal. Random glucode 426, improved to 395 with IVF. Hbg A1c 11.3%, beta- hydroxybutyrate 0.11. Trop 3.2. UA unremarkable except for significant glucose. Pt reports he is compliant with metforming, does not check his sugar, and has not seen his pcp in nearly a year. Head CT negative for any acute intracranial abnormality. CT neck negative for any large vessel acute loosen, aneurysm or dissection. Does reveal an incidentally found ill-defined and irregular mass at the posterior aspect of the tongue base with near complete opacification bilaterally possibly representing enlarged lingual tonsils verses oropharyngeal mass/neoplasm. In the ED, pt passed nursing bedside swallow evaluation. Given 162mg asa. Not a tpa candidate as symptoms are resolving. Hospital course: He presented with ataxia and slurred speech, prompting concerns about a possible transient ischemic attack (TIA) or stroke. However, both the CT scan of the head and neck and the CT brain scan showed no signs of acute issues. The subsequent MRI also did not reveal any acute stroke. It was noted that his blood sugar levels were significantly elevated upon arrival, which may have contributed to his unsteadiness, but this issue has since resolved. Neurology assessed the patient and recommended optimizing his blood pressure medications. I have added a 12.5 mg dose of HCTZ, which will require further adjustments by his primary care physician on an outpatient basis. Additionally, an incidental finding on the CT scan showed an ill-defined and irregular mass at the posterior aspect of the tongue base, nearly completely obstructing both sides. This finding may suggest enlarged lingual tonsils or an oropharyngeal mass or neoplasm. The patient does not exhibit any related symptoms, but it is advised that he follows up with an Ear, Nose, and Throat (ENT) specialist for further assessment. This was communicated to him directedly Time Spent with Patient Time attestation: Total time managing care of this patient today ____ minutes. Discharge coordination time: Greater than 30 minutes Quality: Safe Use of Opioids Does Pt have an Active Cancer Diagnosis on the Problem List?: No Quality: Stroke Does the patient have a stroke diagnosis?: No Physical Exam Vital Signs: Vital Signs: Last Vital Signs Temp 97.7 F 02/22/23 08:00 Pulse 62 02/22/23 08:00 Resp 16 02/22/23 08:00 BP 169/89 H 02/22/23 08:00 Pulse Ox 95 02/22/23 08:00 O2 Del Method Room Air 02/22/23 08:00 BMI result Body Mass Index 30.8 DS: Data Data Completed and Pending Labs on day of discharge: Laboratory Results - last 24 hr 02/21/23 02/21/23 02/21/23 11:06 11:09 11:12 WBC 10.9 H RBC 5.69 Hgb 15.8 Hct 46.9 MCV 82.4 MCH 27.8 MCHC 33.7 RDW 14.2 Plt Count 269 D MPV 9.7 Immature Gran % (Auto) 0.5 H Neut % (Auto) 65.5 Lymph % (Auto) 24.7 [place] % (Auto) 6.5 Eos % (Auto) 2.3 Baso % (Auto) 0.5 Lymph # (Auto) 2.7 [place] # (Auto) 0.7 Eos # (Auto) 0.3 Baso # (Auto) 0.1 Abs Immat Gran (auto) 0.05 H Absolute Neuts (auto) 7.2 Absolute Nucleated RBC 0.000 Nucleated RBC % (auto) 0.0 PT 11.3 Whole Blood PT 12.0 INR 0.9 Whole Blood INR 1.0 APTT 32.0 Sodium 138 Potassium 3.3 Chloride 100 Carbon Dioxide 25 Anion Gap 16 BUN 12 Creatinine 1.00 Estim Creat Clear Calc 100.3 Estimated GFR > 60 POC Glucose 394 H* Random Glucose 429 H* Estimat Average Glucose 278 Hemoglobin A1c % 11.3 H Calcium 9.7 Total Creatine Kinase 52 Troponin I High Sens 3.2 Triglycerides Cholesterol LDL Cholesterol, Calc HDL Cholesterol Beta-Hydroxybutyrate 0.11 Urine Color Urine Appearance Urine pH Ur Specific [place] Urine Protein Urine Glucose (UA) Urine Ketones Urine Blood Urine Nitrite Ur Leukocyte Esterase Urine RBC Urine WBC Ur Squamous Epith Cells Urine Bacteria Hyaline Casts 02/21/23 02/21/23 02/21/23 12:04 15:53 21:34 WBC RBC Hgb Hct MCV MCH MCHC RDW Plt Count MPV Immature Gran % (Auto) Neut % (Auto) Lymph % (Auto) [place] % (Auto) Eos % (Auto) Baso % (Auto) Lymph # (Auto) [place] # (Auto) Eos # (Auto) Baso # (Auto) Abs Immat Gran (auto) Absolute Neuts (auto) Absolute Nucleated RBC Nucleated RBC % (auto) PT Whole Blood PT INR Whole Blood INR APTT Sodium Potassium Chloride Carbon Dioxide Anion Gap BUN Creatinine Estim Creat Clear Calc Estimated GFR POC Glucose 260 H 300 H Random Glucose Estimat Average Glucose Hemoglobin A1c % Calcium Total Creatine Kinase Troponin I High Sens Triglycerides Cholesterol LDL Cholesterol, Calc HDL Cholesterol Beta-Hydroxybutyrate Urine Color Yellow Urine Appearance Clear Urine pH 8.0 Ur Specific [place] >= 1.030 H Urine Protein Negative Urine Glucose (UA) >=1000 H Urine Ketones Negative Urine Blood Negative Urine Nitrite Negative Ur Leukocyte Esterase Negative Urine RBC 0-2 Urine WBC 0-5 Ur Squamous Epith Cells 0-2 Urine Bacteria None Seen Hyaline Casts 0-2 02/22/23 02/22/23 06:13 07:43 WBC 11.2 H RBC 5.28 Hgb 14.8 Hct 42.9 MCV 81.3 MCH 28.0 MCHC 34.5 RDW 14.0 Plt Count 251 MPV 9.7 Immature Gran % (Auto) 0.4 Neut % (Auto) 58.0 Lymph % (Auto) 29.3 [place] % (Auto) 8.1 Eos % (Auto) 3.4 Baso % (Auto) 0.8 Lymph # (Auto) 3.3 [place] # (Auto) 0.9 Eos # (Auto) 0.4 Baso # (Auto) 0.1 Abs Immat Gran (auto) 0.05 H Absolute Neuts (auto) 6.5 Absolute Nucleated RBC 0.000 Nucleated RBC % (auto) 0.0 PT Whole Blood PT INR Whole Blood INR APTT Sodium 141 Potassium 3.1 L Chloride 104 Carbon Dioxide 24 Anion Gap 16 BUN 10 Creatinine 0.70 Estim Creat Clear Calc 142.8 Estimated GFR > 60 POC Glucose 173 H Random Glucose 168 H Estimat Average Glucose Hemoglobin A1c % Calcium 8.8 D Total Creatine Kinase Troponin I High Sens Triglycerides 152 H Cholesterol 125 LDL Cholesterol, Calc 65 HDL Cholesterol 30 L Beta-Hydroxybutyrate Urine Color Urine Appearance Urine pH Ur Specific [place] Urine Protein Urine Glucose (UA) Urine Ketones Urine Blood Urine Nitrite Ur Leukocyte Esterase Urine RBC Urine WBC Ur Squamous Epith Cells Urine Bacteria Hyaline Casts Discharge Plan Discharge Anticipated Discharge Date/Time: 02/22/23 08:16 Patient Disposition: Home, Self-Care Discharge Diagnosis: Unsteady gait, hyperglycemia Referrals: Physician,Unknown J [Primary Care Provider] - 1 Week Discharge Medications: New hydrochlorothiazide 12.5 mg Tablet 12.5 mg PO DAILY Qty: 30 0RF Protocol: Hold for SBP< HOLD for SBP < : 90 Continued atorvastatin 80 mg Tablet 80 mg PO DAILY meloxicam 15 mg Tablet 15 mg PO DAILY PRN (Reason: Pain) carbamazepine 200 mg Tablet 400 mg PO BID baclofen 10 mg Tablet 10 mg PO BID-TID amlodipine 10 mg Tablet 10 mg PO DAILY lisinopril 40 mg Tablet 40 mg PO DAILY ezetimibe 10 mg Tablet 10 mg PO DAILY pregabalin 200 mg Capsule 200 mg PO TID Ubrelvy 50 mg Tablet 50 mg PO NEEDED PRN (Reason: Migraine Headache) Rx Instructions: MRX1 after 2 hours Discharge Orders: Discharge Order (Routine); Ordered 02/22/23 Ordered By: Dane Harmon Diet: Diabetic diet Activity on Discharge: As tolerated Stand Alone Forms: Patient Portal Discharge page Care Plan Goals: Recovery from unsteadiness, hyperglycemia Health Concerns: hyperglycemia, unsteady gait which has resolved Plan of Treatment: take all your medications as directed and follow up with your doctor in a week to have diabetes assess call for appointment. Hydrochlorothiazide is being prescribed to better control your blood pressure, your doctor should look into adjusting your blood pressure further Also CT of the head show some iregular finding in the mouth area and it is recommended that you follow up with an ENT specialist, Please have your doctor make a referal for you or call Ear Nose & Throat, [facility] [place] [address] [facility] [address], [place] [address] Assessment: See above Patient Instructions: Hydrochlorothiazide (By mouth) Discharge Date/Time: 02/22/23 15:53
[2023-02-22] MEDS: amLODIPine Besylate 10 MG TABLET PO (08:25)
[2023-02-22] MEDS: Baclofen 10 MG TABLET PO (08:25)
[2023-02-22] MEDS: Atorvastatin Calcium 80 MG TABLET PO ×2 (08:25→09:00)
[2023-02-22] MEDS: Pregabalin 200 MG CAPSULE PO (08:25)
[2023-02-22] MEDS: Ezetimibe 10 MG TABLET PO (08:25)
[2023-02-22] MEDS: lisinopriL 40 MG TABLET PO (08:25)
[2023-02-22] MEDS: Aspirin Enteric Coated 81 MG TABLET.DR PO (08:25)
[2023-02-22] MEDS: carBAMazepine 200 MG TABLET 400 MG PO (08:26)
[2023-02-22] MEDS: Insulin Lispro 100 UNIT/ML 3 ML VIAL SUBCUT ×2 (08:27→14:10)
[2023-02-22] MEDS: 0.9 % Sodium Chloride Flush 3 ML SYRINGE IVFLUSH (08:28)
--- NOTE | 2023-02-22 08:51 | MHC.CM.PN ---
CM met with Patient at bedside and addressed RYDER with him, providing Patient with the original and placing a copy on the chart.Patient lives alone in a house and uses a cane to assist with mobility. Home/self care is the goal and CM has initiated and will follow for dc planning. PCP is from [facility] [place]. Patient's Sister will transport to home.
[2023-02-22] MEDS: Potassium Chloride ER 20 MEQ TAB.ER.PRT 40 MEQ PO ×2 (09:00→15:41)
[2023-02-22] MEDS: LORazepam 2 MG/ML VIAL 1 MG IVPUSH (11:50)
[2023-02-22 13:31] LABS: Glucose, Whole Blood 222 mg/dL (60-115)
--- NOTE | 2023-02-22 14:10 | P.CNNE_ITS ---
History of Present Illness Data of Consult Service Date: 02/22/23 Primary Care Provider: Unknown Physician HPI Reason for consult: Stroke-like symptoms 52 year old male with history of poorly controlled type 2 diabetes, htn, hld, migraines headaches, hx cva, and diabetic polyneuropathy presented to the ED earlier today with stroke like symptoms. Specifically he was unsteady and had difficulty speaking with no obvious headache or cold or flu-like illness. He also suffered from obstructive sleep apnea but was not clear if he was using CPAP machine or not. There was no associated chest pain shortness of breath palpitation. Review of Systems 2 Review of Systems: No recent cold or flu-like illness PMFSH Past Medical History Medical History Diabetic polyneuropathy Diabetes History of stroke Hyperlipidemia Hypertension Social History Social History Patient Tobacco Use Status: Current everyday Tobacco user Cigarettes Per Day: 10 Second Hand Smoke Exposure: No service: Yes Meds Allergies Allergy/AdvReac Type Severity Reaction Status Date / Time No Known Allergies Allergy Verified 07/22/22 17:32 Active Medications: Current Medications Acetaminophen (Acetaminophen 325 Mg Tablet) 650 mg PO Q6H PRN PRN Reason: Pain, Mild (Pain Scale 1-3) Last Admin: 02/21/23 14:46 Dose: 650 mg Amlodipine Besylate (Amlodipine Besylate 10 Mg Tablet) 10 mg PO DAILY FOR[facility]LY [facility], [facility]; Protocol Last Admin: 02/22/23 08:25 Dose: 10 mg Aspirin (Aspirin Enteric Coated 81 Mg Tablet.) 81 mg PO DAILY [facility]LY [facility], [facility]1983 Last Admin: 02/22/23 08:25 Dose: 81 mg Atorvastatin Calcium (Atorvastatin Calcium 80 Mg Tablet) 80 mg PO DAILY [facility], [facility]1983 Last Admin: 02/22/23 08:25 Dose: 80 mg Atorvastatin Calcium (Atorvastatin Calcium 80 Mg Tablet) 80 mg PO DAILY [facility]1983 Baclofen (Baclofen 10 Mg Tablet) 10 mg PO TID [facility]1983 Last Admin: 02/22/23 08:25 Dose: 10 mg Carbamazepine (Carbamazepine 200 Mg Tablet) 400 mg PO BID [facility] Last Admin: 02/22/23 08:26 Dose: 400 mg Dextrose (Dextrose 50 % 25 Gm/50 Ml Syringe) 25 gm IVPUSH Q15M PRN; Protocol PRN Reason: per Hypoglycemia Standing Ord. Docusate Sodium (Docusate Sodium 100 Mg Capsule) 100 mg PO DAILY PRN PRN Reason: Constipation Ezetimibe (Ezetimibe 10 Mg Tablet) 10 mg PO DAILY [facility] Last Admin: 02/22/23 08:25 Dose: 10 mg Enoxaparin Sodium (Enoxaparin Sodium 40 Mg/0.4 Ml Syringe) 40 mg SUBCUT Q24H [facility], [facility]1983 Last Admin: 02/21/23 14:38 Dose: 40 mg Glucose (Glucose Gel 15 Gm Gel..Gram.) 15 gm PO Q15M PRN; Protocol PRN Reason: per Hypoglycemia Standing Ord. Insulin Glargine (Insulin Glargine,Hum.Rec.Anlog 100 Unit/Ml 10 Ml Vial) 10 unit SUBCUT BEDTIME [facility], [facility] Last Admin: 02/21/23 21:41 Dose: 10 unit Insulin Human Lispro (Insulin Lispro 100 Unit/Ml 3 Ml Vial) 0 unit SUBCUT QIDACHS [facility], [facility]–1983; Protocol Last Admin: 02/22/23 08:27 Dose: 2 unit Lisinopril (Lisinopril 40 Mg Tablet) 40 mg PO DAILY [facility]; Protocol Last Admin: 02/22/23 08:25 Dose: 40 mg Naproxen (Naproxen 500 Mg Tablet) 500 mg PO BID PRN PRN Reason: Pain, Moderate(Pain Scale 4-6) Ondansetron HCl (Ondansetron Hcl 4 Mg/2 Ml Vial) 4 mg IVPUSH Q8H PRN PRN Reason: Nausea and Vomiting Potassium Chloride (Potassium Chloride Er 20 Meq Tab.Er.Prt) 40 meq PO Q8H [facility]1983 Stop: 02/22/23 16:16 Pregabalin (Pregabalin 200 Mg Capsule) 200 mg PO TID [facility] Last Admin: 02/22/23 08:25 Dose: 200 mg Sodium Chloride (0.9 % Sodium Chloride Flush 3 Ml Syringe) 3 ml IVFLUSH QSHIFT [facility]1983 Last Admin: 02/22/23 08:28 Dose: 3 ml Sumatriptan Succinate (Sumatriptan Succinate 50 Mg Tablet) 50 mg PO DAILY PRN PRN Reason: Migraine Headache Home Medications Medication Instructions Recorded Confirmed Last Taken Type amlodipine 10 mg tablet 10 mg PO DAILY 02/21/23 02/21/23 02/21/23 History atorvastatin 80 mg tablet 80 mg PO DAILY 10/02/21/23 02/21/23 History baclofen 10 mg tablet 10 mg PO BID-TID 02/21/23 02/21/23 Unknown History carbamazepine 200 mg tablet 400 mg PO BID 02/21/23 02/21/23 02/21/23 History ezetimibe 10 mg tablet 10 mg PO DAILY 02/21/23 02/21/23 Unknown History lisinopril 40 mg tablet 40 mg PO DAILY 02/21/23 02/21/23 02/21/23 History meloxicam 15 mg tablet 15 mg PO DAILY PRN Pain 02/21/23 02/21/23 Unknown History pregabalin 200 mg capsule 200 mg PO TID 02/21/23 02/21/23 02/21/23 History ubrogepant 50 mg tablet (Ubrelvy) 50 mg PO NEEDED PRN Migraine 02/21/23 02/21/23 Unknown History Headache Physical Exam 2 Vital Signs: Vital Signs: Last Vital Signs Temp 97.7 F 02/22/23 08:00 Pulse 62 02/22/23 08:00 Resp 16 02/22/23 08:00 BP 169/89 H 02/22/23 08:00 Pulse Ox 95 02/22/23 08:00 O2 Del Method Room Air 02/22/23 08:00 BMI result Body Mass Index 30.8 Neuro: Other: Very sleepy and snoring but I was able to wake him up. He smiled and spontaneity and fluency of speech was normal. Comprehension was normal. He recognize his sister. Face was symmetrical. Visual prince are full. Speech was normal. Deep tendon reflexes were trace to absent with flat plantars. Results Labs 02/22/23 06:13 02/22/23 06:13 Labs: Short CBC 02/22/23 Range/Units 06:13 WBC 11.2 H (4.8-10.8) X10*3/uL Hgb 14.8 (14.0-18.0) g/dl Hct 42.9 (42.0-52.0) % Plt Count 251 (160-400) X10*3/uL BMP 02/22/23 06:13 Sodium 141 Potassium 3.1 L Chloride 104 Carbon Dioxide 24 BUN 10 Creatinine 0.70 Calcium 8.8 D MRI of brain was limited due to motion artifact but did did not reveal any acute abnormality. Couple of chronic vascular lesions were noted. CTA of brain and neck did not reveal any significant vascular lesion but there were some abnormalities an oral mandibular area suspicion of underlying inflammatory process or even a malignant process. Assessment and Plan (1) Alteration in speech: Status: Acute 52 years old man with hypertension and couple of probably hypertension related chronic infarctions presented with nonspecific symptoms of difficulty speaking and unsteadiness. Examination now is nonfocal an MRI of brain did not reveal any acute abnormality. There is no vascular lesion. Blood pressure is still high and needed attention. Mainstay of management is blood pressure control anti-platelet agent and statin. CTA of brain and did revealed some oromandibular area abnormalities that need further attention and might shed some light into difficulty speaking. In ENT outpatient consultation is recommended for proper examination and appropriate investigations. Time Spent With Patient Time: Total time managing care of this patient today ____ minutes. Procedures Date of Service Date of Service: 02/22/23
[2023-02-22] MEDS: Enoxaparin Sodium 40 MG/0.4 ML SYRINGE SUBCUT (14:11)
--- NOTE | 2023-02-22 14:34 | MHC.CM.PN ---
Patient has been medically cleared for dc to home today, self care.
[2023-02-22 15:26] VITALS: BP 163/89; PULSE 62; RESP 16; TEMP 36.1; O2SAT 96
[2023-02-22] MEDS: hydroCHLOROthiazide 12.5 MG TABLET PO (15:41)
== END 2023-02-22 15:53 | disposition home or self-care (01) ==
LOC: HO.ED 12:38 → HO.EDOVER 13:01 → HO.IMC 14:30
PROVIDERS: Admitting Provider Physician Assistant; Emergency Provider Student in an Organized Health Care Education/Training Program; Visit Provider Internal Medicine
DX: R26.89 Other abnormalities of gait and mobility (principal); R47.81 Slurred speech; R42 Dizziness and giddiness; R47.89 Other speech disturbances; I10 Essential (primary) hypertension; R94.8 Abnormal results of function studies of other organs and systems; E78.5 Hyperlipidemia, unspecified; E11.42 Type 2 diabetes mellitus with diabetic polyneuropathy; Z79.4 Long term (current) use of insulin; Z79.899 Other long term (current) drug therapy
CPT/HCPCS: 36415; 70450; 70496; 70498; 70551; 80048; 80061; 81001; 82010; 82550; 82947; 83036; 84484; 85025; 85610; 85730; 93005; 93306; 96361; 96372; 96374; 97165; 99222; 99285; J1650; J2060; Q9967

== ENCOUNTER 2023-02-21 12:53 | Outpatient (BNV) | payer OTHER, SELFPAY | END 2023-02-22 07:00 | PROVIDERS: Admitting Provider Physician Assistant; Emergency Provider Student in an Organized Health Care Education/Training Program; Visit Provider Internal Medicine Cardiovascular Disease | DX: G45.9 Transient cerebral ischemic attack, unspecified (principal) | CPT/HCPCS: 93306 ==

== ENCOUNTER → 2023-02-21 12:53 | Outpatient (BNV) | payer OTHER, SELFPAY | PROVIDERS: Admitting Provider Physician Assistant; Emergency Provider Student in an Organized Health Care Education/Training Program; Visit Provider Physician Assistant | DX: E11.42 Type 2 diabetes mellitus with diabetic polyneuropathy (principal); R47.89 Other speech disturbances; R26.81 Unsteadiness on feet | CPT/HCPCS: 99223; 99239 ==